=== PATIENT | female | born 1985 | race Caucasian/White ===

== ENCOUNTER 2018-08-01 13:32 | Observation (INO) ==
[~2018-08-01 13:32] MED LIST: Aminoglycoside Consult 1 EACH MC ONE
--- NOTE | 2018-08-01 14:20 | Emergency Department Note ---
Disposition Clinical Impression: Subgaleal fluid collection Abscess of skin or subcutaneous tissue Qualifiers: Site of cutaneous abscess: face Qualified Code(s): L02.01 - Cutaneous abscess of face Disposition: Admitted As Inpatient Condition: Good Referrals: Michelle Ram CNP [Primary Care Provider] - Forms: ED Satisfaction Letter Time of Disposition: 18:36 General Adult HPI - General Chief complaint: ED Skin/Abscess/Foreign Body Stated complaint: bump on forehead Time Seen by Provider: 08/01/18 14:03 Source: patient Mode of arrival: ambulatory Limitations: no limitations Nursing Notes Reviewed: Yes Vital Signs Reviewed: Yes - History of Present Illness HPI Narrative: Patient is a 32-year-old female, otherwise healthy with no major past medical history. She presents today due to concern for right forehead swelling. She states that she was recently treated for frontal sinusitis. She finished anabiotic Levaquin today. She states that around a week ago, she had some mild frontal sinus discomfort and some mild swelling around the medial aspect of the right eye. After beginning the antibiotic, this swelling went away. This morning, she woke up and she had small amount of swelling of the right forehead and she states that it has gotten bigger throughout the day. Denies any fevers, nausea, vomiting, diarrhea, chest pain, shortness breath, abdominal pain. She also reports tingling sensation of the right forehead, right posterior ear. Denies any ear pain. Denies any rhinorrhea or sore throat. Denies any overt pain of right forehead. Denies any pain with eye movement, any vision loss. She does admit to some mild blurred vision. Denies any injuries, falls. Pain Scale: 3 - Related Data Home Medications Medication Instructions Recorded Confirmed Sertraline [Zoloft] 100 mg PO BID 05/20/15 03/25/17 Cetirizine HCl [Zyrtec] 10 mg PO DAILY PRN 03/31/16 03/25/17 Cholecalciferol (D-3) [Vitamin D] 5,000 unit PO DAILY 03/25/17 03/25/17 Spironolactone [Aldactone] 50 mg PO DAILY 03/25/17 03/25/17 Previous Rx's Medication Instructions Recorded HYDROcodone/Acet 5/325 mg [[place] 1 tab PO Q4HR PRN #40 tablet 03/26/17 5-325 mg] Ibuprofen [Motrin] 600 mg PO Q6HR PRN #40 tablet 03/26/17 Allergies Allergy/AdvReac Type Severity Reaction Status Date / Time Oxycodone [From Percocet] AdvReac Mild Hives Verified 03/25/17 07:23 All systems ED: reviewed and negative except as stated. Constitutional: Denies: fever Eyes: Reports: other (right forehead swelling) Cardiovascular: Denies: chest pain Respiratory: Denies: cough, dyspnea Gastrointestinal: Denies: abdominal pain, nausea, vomiting Genitourinary: Denies: urgency, dysuria Musculoskeletal: Denies: back pain Neurological: Denies: headache, weakness, numbness Past Medical History - Past Medical History Attestation: Yes The following information was validated with the patient. Source: patient Medical history: Reports: thyroid disease, other Surgical history: Reports: other Psychiatric history: Reports: depression - Social History Smoking Status: Never smoker Smokeless Tobacco Status: No Alcohol use: Reports: none Drug use: Reports: none Physical Exam - General Limitations: no limitations General appearance: alert - Head Head exam: normocephalic, normal inspection - Expanded Head Exam 1 - right frontal swelling approx 6-7cm x 6-7cm, firm to touch with no fluc tuance; no overlying erythema; No overt tenderness - Eye Eye exam: Present: normal appearance, PERRL, EOMI, other (No pain with eyemovement). Absent: conjunctival injection, nystagmus, periorbital swelling, periorbital tenderness - ENT ENT exam: normal exam, normal oropharynx, mucous membranes moist, TM's normal bilaterally - Neck Neck exam: Present: normal inspection, full ROM, trachea midline - Chest Chest inspection: Present: normal inspection, symmetric chest wall rise - Respiratory Respiratory exam: Present: normal lung sounds bilaterally - Cardiovascular Cardiovascular exam: Present: regular rate, normal rhythm, normal heart sounds - Abdominal Exam Abdominal exam: Present: soft, Non-Tender. Absent: tenderness, distention, guarding, rebound, rigidity - Extremities Exam Extremities exam: Present: normal inspection, full ROM. Absent: tenderness, pedal edema - Neurological Exam Neurological exam: Present: alert, oriented X3, CN II-XII intact. Absent: motor sensory deficit - Expanded Neurological Exam Patient oriented to: Present: person, place, time Speech: Present: fluid speech Cranial nerves: EOM function (II, III, IV, ): Normal, facial sensation (V): Normal, facial palsy (VII): Normal, spinal accessory function (XI): Normal, ton victorino deviation (XII): Normal Motor strength - LUE: 5/5 Motor strength - RUE: 5/5 Motor strength - LLE: 5/5 Motor strength - RLE: 5/5 Sensory exam upper extremity: light touch: Normal Sensory exam lower extremity: light touch: Normal Coma Scale Eye Opening: Spontaneous Coma Scale Motor Response: Obeys Commands Coma Scale Verbal Response: Oriented Coma Scale Total: 15 - Psychiatric Psychiatric exam: Present: normal affect, normal mood - Skin Skin exam: Present: warm, dry, intact, normal color Course Course Narrative: Physical exam shows firm right frontal forehead lesion approximately 6 or 7 cm in diameter. No overlying fluctuance or erythema, no lesions. She has been reportedly treated for possible sinusitis. Currently concern for also periosteal involvement such as Morelos Puffy Tumor. I talked with neuroradiologist on the phone who recommended MRI of the face with without contrast for further assessment in setting of a CT scan. This was discussed with patient. She is agreeable with this plan. 18:29 MRI shows subgaleal fluid in the right frontal scalp concerning for phlegmon or developing abscess. I called the radiologist Dr. Lemuel Velazquez, and specifically discussed the evaluation for Morelos tumor. He stated that there was no underlying sinus disease, this was not a Morelos tumor. I talked with ENT, Dr. Harper, discussed presentation, clinical and imaging findings. Since area is firm in no overlying fluctuance, she requested IV vancomycin, Decadron 8 mg every 8 hours 3 doses and she will act as a consult and see the patient the morning. No surgical intervention at this time. This was discussed with patient. She was agreeable with staying. Dr. Ibrahim has accepted for admission. CBC is pending. This pending lab was relayed to the hospitalist. Face MRI 08/01/18 14:46 IMPRESSION: Enhancing subgaleal fluid in the right frontal scalp concerning for phlegmon or developing abscess. No underlying marrow signal abnormality, paranasal sinus disease, or intracranial extension. D/ / Lemuel Velazquez / Lemuel Velazquez Interpreting Provider: Lemuel Velazquez Vital Signs Temperature 98.2 F 08/01/18 13:35 Pulse Rate 74 08/01/18 13:35 Respiratory Rate 16 08/01/18 13:35 Blood Pressure 148/86 08/01/18 13:35 O2 Sat by Pulse Oximetry 98 08/01/18 13:35 Temperature 98.2 F 08/01/18 13:51 Pulse Rate 74 08/01/18 13:51 Respiratory Rate 16 08/01/18 13:51 Blood Pressure 148/86 08/01/18 13:51 O2 Sat by Pulse Oximetry 98 08/01/18 13:51 Oxygen Delivery Oxygen Delivery Room Air Medical Decision Making - MDM Narrative Medical decision making narrative: Physical exam shows firm right frontal forehead lesion approximately 6 or 7 cm in diameter. No overlying fluctuance or erythema, no lesions. She has been reportedly treated for possible sinusitis. Currently concern for also periosteal involvement such as Morelos Puffy Tumor. I talked with neuroradiologist on the phone who recommended MRI of the face with without contrast for further assessment in setting of a CT scan. This was discussed with patient. She is agreeable with this plan. 18:29 MRI shows subgaleal fluid in the right frontal scalp concerning for phlegmon or developing abscess. I called the radiologist Dr. Lemuel Velazquez, and specifically discussed the evaluation for Morelos tumor. He stated that there was no underlying sinus disease, this was not a Morelos tumor. I talked with ENT, Dr. Harper, discussed presentation, clinical and imaging findings. Since area is firm in no overlying fluctuance, she requested IV vancomycin, Decadron 8 mg every 8 hours 3 doses and she will act as a consult and see the patient the morning. Site was marked with skin marker for monitoring of progression. No surgical intervention at this time. This was discussed with patient. She was agreeable with staying. Dr. Ibrahim has accepted for admission. CBC is pending. This pending lab was relayed to the hospitalist. - Medical Records Medical records reviewed: Yes I reviewed the patient's medical records. - Lab Data Lab results reviewed: Yes I reviewed the patient's lab results. Result diagrams: 08/01/18 15:00 Lab Results 08/01/18 Range/Units 15:00 Sodium 138 (136-145) mEq/L Potassium 3.5 (3.5-5.1) mEq/L Chloride 102 (98-107) mEq/L Carbon Dioxide 30 H (23-29) mEq/L BUN 13 (6-20) mg/dL Creatinine 0.76 (0.60-1.20) mg/dL Est GFR ( Amer) > 60 (> 60) Est GFR (Non-Af Amer) > 60 (> 60) BUN/Creatinine Ratio 17 (6-26) Glucose 99 (70-105) mg/dL Calculated Osmolality 286 (280-300) Calcium 9.4 (8.6-10.3) mg/dL - Radiology Data Radiology results reviewed: Yes I reviewed the patient's radiology results. Face MRI 08/01/18 14:46 IMPRESSION: Enhancing subgaleal fluid in the right frontal scalp concerning for phlegmon or developing abscess. No underlying marrow signal abnormality, paranasal sinus disease, or intracranial extension. D/ / Lemuel Velazquez / Lemuel Velazquez Interpreting Provider: Lemuel Velazquez S.B.A.R. - S.B.A.R. Situation: Demographics, MOA Background: Presenting Complaint, Relevant PMH, Meds, & Allergies Assessment: Vital Signs, Course and respsone to treatment, Exam Concerns, Patient/Family Expectation, Pertinant Lab Results, Outstanding Labs (CBC) Recommendation: Barrier(s) to disposition, Recommendation based on pending studies, treatments, or consults S.B.A.R. Report Given to: Dr. Ibrahim
[2018-08-01] MEDS ORDERED: Gadolinium Contrast Agent (WT Based) IV PRN (14:46)
[2018-08-01 15:24] LABS: BUN/Creatinine Ratio 17 (6-26); Blood Urea Nitrogen 13 mg/dL (6-20); Calcium 9.4 mg/dL (8.6-10.3); Carbon Dioxide 30 mEq/L (23-29); Chloride 102 mEq/L (98-107); Glucose 99 mg/dL (70-105); Osmolality,Calculated 286 (280-300); Potassium 3.5 mEq/L (3.5-5.1); Sodium 138 mEq/L (136-145); eGFR For Non-African Americans > 60 (> 60)
--- NOTE | 2018-08-01 15:31 | Emergency Department Note ---
Disposition Clinical Impression: Subgaleal fluid collection Abscess of skin or subcutaneous tissue Qualifiers: Site of cutaneous abscess: face Qualified Code(s): L02.01 - Cutaneous abscess of face Disposition: Admitted As Inpatient Referrals: Michelle Ram CNP [Primary Care Provider] - Forms: ED Satisfaction Letter General Adult HPI - General Chief complaint: ED Skin/Abscess/Foreign Body Stated complaint: bump on forehead Time Seen by Provider: 08/01/18 14:03 Source: patient Mode of arrival: ambulatory Limitations: no limitations - History of Present Illness Pain Scale: 3 - Related Data Home Medications Medication Instructions Recorded Confirmed Sertraline [Zoloft] 100 mg PO BID 05/20/15 03/25/17 Cetirizine HCl [Zyrtec] 10 mg PO DAILY PRN 03/31/16 03/25/17 Cholecalciferol (D-3) [Vitamin D] 5,000 unit PO DAILY 03/25/17 03/25/17 Spironolactone [Aldactone] 50 mg PO DAILY 03/25/17 03/25/17 Previous Rx's Medication Instructions Recorded HYDROcodone/Acet 5/325 mg [[place] 1 tab PO Q4HR PRN #40 tablet 03/26/17 5-325 mg] Ibuprofen [Motrin] 600 mg PO Q6HR PRN #40 tablet 03/26/17 Allergies Allergy/AdvReac Type Severity Reaction Status Date / Time Oxycodone [From Percocet] AdvReac Mild Hives Verified 03/25/17 07:23 Constitutional: Denies: fever Eyes: Reports: other (right forehead swelling) Cardiovascular: Denies: chest pain Respiratory: Denies: cough, dyspnea Gastrointestinal: Denies: abdominal pain, nausea, vomiting Genitourinary: Denies: urgency, dysuria Musculoskeletal: Denies: back pain Neurological: Denies: headache, weakness, numbness Past Medical History - Past Medical History Medical history: Reports: thyroid disease, other Surgical history: Reports: other Psychiatric history: Reports: depression - Social History Smoking Status: Never smoker Smokeless Tobacco Status: No Alcohol use: Reports: none Drug use: Reports: none Physical Exam - General Limitations: no limitations General appearance: alert Course Vital Signs Temperature 98.2 F 08/01/18 13:35 Pulse Rate 74 08/01/18 13:35 Respiratory Rate 16 08/01/18 13:35 Blood Pressure 148/86 08/01/18 13:35 O2 Sat by Pulse Oximetry 98 08/01/18 13:35 Temperature 98.2 F 08/01/18 13:51 Pulse Rate 74 08/01/18 13:51 Respiratory Rate 16 08/01/18 13:51 Blood Pressure 148/86 08/01/18 13:51 O2 Sat by Pulse Oximetry 98 08/01/18 13:51 Oxygen Delivery Oxygen Delivery Room Air Medical Decision Making - MDM Narrative Medical decision making narrative: We did an MRI of this region and it does show a subgaleal phlegmon with developing abscess. We spoke with the radiologist. He does not feel this is a Pott's puffy tumor as there is no sinus disease involvement. We consulted with ENT. They recommended admission for IV antibiotics and will see tomorrow. Also recommended IV steroids. They do not recommend doing any local incision and drainage. - Medical Records Medical records reviewed: Yes I reviewed the patient's medical records. - Lab Data Lab results reviewed: Yes I reviewed the patient's lab results. Result diagrams: 08/01/18 15:00 Lab Results 08/01/18 Range/Units 15:00 Sodium 138 (136-145) mEq/L Potassium 3.5 (3.5-5.1) mEq/L Chloride 102 (98-107) mEq/L Carbon Dioxide 30 H (23-29) mEq/L BUN 13 (6-20) mg/dL Creatinine 0.76 (0.60-1.20) mg/dL Est GFR ( Amer) > 60 (> 60) Est GFR (Non-Af Amer) > 60 (> 60) BUN/Creatinine Ratio 17 (6-26) Glucose 99 (70-105) mg/dL Calculated Osmolality 286 (280-300) Calcium 9.4 (8.6-10.3) mg/dL - Radiology Data Radiology results reviewed: Yes I reviewed the patient's radiology results. Critical Care Time Critical Care Time: No Attestation Statement - Attestation Attestation: I examined this patient and my medical decision-making was reviewed with the R donitadent Physician. I agree with the documented findings, disposition and treatment plan as described except to the extent set forth below. 32 yo F here for right forehead swelling. started today randomly. located to right supraorbital area and goes uip to hairline. she states was dx'd with sinusitis recently and on antibiotics.
[2018-08-01 18:34] LABS: Basophils % 0.5 %; Eosinophils # 0.4 K/mcL (0.0-0.6); Hematocrit 45.4 % (35.3-44.9); Hemoglobin 15.1 g/dL (11.5-15.4); Immature Granulocytes % 0.2 % (0-4); Lymphocytes # 2.4 K/mcL (0.6-4.6); Lymphocytes % 29.6 %; Mean Corpuscular HGB Conc 33.3 g/dL (31.6-35.5); Mean Corpuscular Volume 87.1 fL (83.0-100.0); Mean Platelet Volume 10.9 fL (9.4-12.4); Monocytes # 0.6 K/mcL (0.0-1.3); Neutrophils # 4.7 K/mcL (1.6-8.9); Platelet Count 254 K/mcL (140-400); Red Blood Count 5.21 M/mcL (3.82-4.97); Red Cell Distribution Width 12.8 % (11.5-14.5); Segmented Neutrophils % 57.7 %
[2018-08-01] MEDS ORDERED: Ibuprofen 600 MG TABLET PO PRN (19:54)
[2018-08-01] MEDS ORDERED: TRAMADOL 100 MG PO PRN (19:56)
[2018-08-01] MEDS ORDERED: Ketorolac 30 MG/ML VIAL IVP PRN (19:56)
[2018-08-01] MEDS ORDERED: ACETAMINOPHEN 650 MG PO PRN (19:56)
[2018-08-01] MEDS ORDERED: Ringers Solution, Lactated 1,000 ML IVC SCH (20:30)
--- NOTE | 2018-08-01 21:13 | Internal Med History&Physical ---
Date of Encounter: 08/01/18 Time of Encounter: 21:10 Internal Medicine - H&P: HPI Chief complaint: face swelling Admitted From: Home Plans for Post Hospital Care: Home History of present illness: Michelle Hood is a 32 year old woman with no reported past medical history who developed a slight swelling in the area on the medial aspect of the right eyebrow a week ago. She was a PCP who prescribed her 7 days of levofloxacin for suspected frontal sinusitis although she had no upper respiratory symptoms. She completed the course yesterday. She says the swelling never went away and continued to progress until today where she woke up and noticed her whole right forehead was swollen and causing pressure and tingling. She denies having had any preceding trauma or pimples in the area. No fever or chills during this time period. No blurry vision or difficulty with ocular movements. In the ER a face MRI was done and showed enhancing subgaleal fluid in the right frontal scalp concerning for phlegmon or developing abscess. She was started on IV vancomycin and steroids as recommended by ENT and will be seen in the morning. At this time she has no complaints. She has not required any analgesics thus far. Past medical history: PCOS. Past surgical history remarkable for hysterectomy. Denies smoking and illicit drug use on social history. Family history obtained and found noncontributory. 10 point systems were reviewed and are negative except as listed above. Past Med Surg Social Fam HX - Past Medical History Medical history: thyroid disease, other Additional medical history: Hirsutism, PCOS Psychiatric history: depression - Past Surgical History Surgical History: other Additional surgical history: right ctr 2 weeks ago - Social History Smoking Status: Never smoker Smokeless Tobacco Status: No Alcohol use: none Drug use: none - Family History Father Adopted: No Family Member Ethnicity: Non- Living Status: Still Living Internal Medicine - H&P: Meds Sertraline [Zoloft] 50 mg PO DAILY 05/20/15 [History] Cetirizine HCl [Zyrtec] 10 mg PO DAILY PRN 03/31/16 [History] Cholecalciferol (D-3) [Vitamin D] 5,000 unit PO DAILY 03/25/17 [History] Spironolactone [Aldactone] 50 mg PO DAILY 03/25/17 [History] Fluticasone Propionate Nasal [Flonase] 50 mcg NS BID 08/01/18 [History] Ibuprofen [Motrin Ib] 200 - 400 mg PO Q6H PRN 08/01/18 [History] Multivit with Calcium,Iron,Min [One Daily Women's] 1 each PO DAILY 08/01/18 [History] Multivits Min/Iron/FA/Herb#186 [Hair, Skin & Nails Caplet] 1 each PO DAILY 08/01/18 [History] Allergy/AdvReac Type Severity Reaction Status Date / Time Oxycodone [From Percocet] AdvReac Mild Hives Verified 08/01/18 18:37 All Systems PM: A 10-system review of systems was performed and is negative for pertinent findings except as documented above in the HPI. - Constitutional Vitals: Temp Pulse Resp BP Pulse Ox 98.2 F 74 16 148/86 98 08/01/18 13:51 08/01/18 13:51 08/01/18 13:51 08/01/18 13:51 08/01/18 13:51 Exam: Vitals: Reviewed General: Well developed white woman sitting up in bed, NAD Skin: Warm and supple. HEENT: Moist mucous membranes. No conjunctivae pallor. 6cm area of swelling on the right forehead with no no significant erythema, somewhat tender to palpation, buoyant and fluctuant, no visible injuries. EOMI. PERRLA. Neck: No lymphadenopathy. No JVD. No carotid bruits. No palpable thyroid. Chest: Normal thoracic expansion. Normal breath sounds. Clear to auscultation. Heart: Normal S1 & S2; rhythmic. No rubs or murmurs. Abdomen: Non-distended, soft and non-tender to palpation. Extremities: No clubbing, cyanosis or edema. No calf tenderness. Normal distal pulses. Neurological: Awake, alert and oriented to person, place and time. No focal deficits. Psych: Affect appropriate. Internal Med - H&P Results - Labs CBC & Chem 7: 08/01/18 18:05 08/01/18 15:00 Labs: Short CBC 08/01/18 Range/Units 18:05 WBC 8.2 (4.3-11.1) K/mcL Hgb 15.1 (11.5-15.4) g/dL Hct 45.4 H (35.3-44.9) % Plt Count 254 (140-400) K/mcL Neutrophils # 4.7 (1.6-8.9) K/mcL BMP 08/01/18 15:00 Sodium 138 Potassium 3.5 Chloride 102 Carbon Dioxide 30 H BUN 13 Creatinine 0.76 Glucose 99 Calcium 9.4 - Impressions ITS Impressions Face MRI 08/01/18 14:46 IMPRESSION: Enhancing subgaleal fluid in the right frontal scalp concerning for phlegmon or developing abscess. No underlying marrow signal abnormality, paranasal sinus disease, or intracranial extension. D/ / Lemuel Velazquez / Lemuel Velazquez Interpreting Provider: Lemuel Velazquez - Assessment and plan (1) Subgaleal fluid collection Current Visit: Yes Status: Acute Assessment and plan: Unclear etiology. No systemic signs of illness present. No preceding trauma or puncture injuries. Will continue IV vancomycin and steroids as recommended by ENT. May benefit from incision and drainage with sampling of the fluid. Pain control as needed. (2) PCOS (polycystic ovarian syndrome) Current Visit: Yes Status: Chronic Assessment and plan: On spironolactone. (3) Endometriosis determined by laparoscopy Current Visit: No Status: Resolved Assessment and plan: s/p hysterectomy. (4) DVT prophylaxis Current Visit: Yes Status: Acute Assessment and plan: SubQ heparin. - Time Spent With Patient Total time spent is greater than 50% in coordination of care (as documented) at patient's floor/unit and/or counseling patient: Greater than 35 minutes
[2018-08-02] MEDS ORDERED: *HR* Heparin 5,000 UNIT/ML VIAL SQ SCH
[2018-08-02 05:06] LABS: Basophils % 0.2 %; Eosinophils % 0.2 %; Hematocrit 48.2 % (35.3-44.9); Hemoglobin 15.9 g/dL (11.5-15.4); Immature Granulocytes % 0.3 % (0-4); Lymphocytes % 10.2 %; Mean Corpuscular Hemoglobin 28.3 pg (28.0-33.3); Mean Corpuscular Volume 85.9 fL (83.0-100.0); Mean Platelet Volume 10.7 fL (9.4-12.4); Monocytes # 0.1 K/mcL (0.0-1.3); Neutrophils # 8.8 K/mcL (1.6-8.9); Platelet Count 271 K/mcL (140-400); Red Blood Count 5.61 M/mcL (3.82-4.97); Red Cell Distribution Width 12.6 % (11.5-14.5); Segmented Neutrophils % 88.1 %
[2018-08-02 05:14] LABS: Prothrombin Time 11.6 Seconds (9.4-12.1)
[2018-08-02 05:17] LABS: Activated Partial Thrombo Time 31.7 Seconds (26.0-36.0)
[2018-08-02 05:22] LABS: BUN/Creatinine Ratio 21 (6-26); Blood Urea Nitrogen 14 mg/dL (6-20); Calcium 9.9 mg/dL (8.6-10.3); Carbon Dioxide 27 mEq/L (23-29); Chloride 103 mEq/L (98-107); Glucose 149 mg/dL (70-105); Osmolality,Calculated 287 (280-300); Potassium 4.1 mEq/L (3.5-5.1); Sodium 137 mEq/L (136-145); eGFR For Non-African Americans > 60 (> 60)
[2018-08-02] MEDS: Ampicillin/Sulbactam 1,500 MG in 0.9 % Sodium Chloride Mini Bag 100 ML IVPB SCH ×2 (10:14→11:21)
--- NOTE | 2018-08-02 11:18 | Discharge Summary ---
- NOTES TO OUTPATIENT PROVIDER Notes to Outpatient Provider: f/u with PCP in one week. f/u with ENT in one week Date of Encounter: 08/02/18 Time of Encounter: 10:00 - Discharge Diagnosis (1) Facial cellulitis Priority: Primary Status: Acute (2) Subgaleal fluid collection Priority: Primary Status: Acute (3) PCOS (polycystic ovarian syndrome) Priority: Secondary Status: Chronic (4) DVT prophylaxis Priority: Secondary Status: Acute Hospital course: Ms. Hood is a 32 year old female with no reported past medical history other than PCOS, who developed a slight swelling in the area on the medial aspect of the right eyebrow and Frontal area a week ago. Her PCP prescribed her 7 days of levofloxacin for suspected frontal sinusitis although she had no upper resp iratory symptoms. She completed the course yesterday. Pt did mention her swelling got better initially however y/d she noticed whole right forehead was swollen and causing pressure and tingling. She denies having had any preceding trauma or pimples in the area. In the ER a face MRI was done and showed enhancing subgaleal fluid in the right frontal scalp concerning for phlegmon or developing abscess. She was started on IV vancomycin and steroids as recommended by ENT and will be seen in the morning. Talked to radiologist, MRI findings are consistent with facial cellulites. No loculated collection to drain. Also her facial swelling got much better today. She denied any vision changes. ENT evaluated the pt this morning and recommend PO abx for 7-10 days and f/u with them as an out pt. - Time Spent with Patient Total time spent providing and/or coordinating discharge services: - Discharge Medications Prescriptions: Amoxicillin/Clavulanate [Augmentin] 875 mg PO BIDWM #20 tablet Lactobacillus Acidophilus [Acidophilus] 1 each PO BID #20 capsule Home Medications: Sertraline [Zoloft] 50 mg PO DAILY 05/20/15 [History] Cetirizine HCl [Zyrtec] 10 mg PO DAILY PRN 03/31/16 [History] Cholecalciferol (D-3) [Vitamin D] 5,000 unit PO DAILY 03/25/17 [History] Spironolactone [Aldactone] 50 mg PO DAILY 03/25/17 [History] Fluticasone Propionate Nasal [Flonase] 50 mcg NS BID 08/01/18 [History] Ibuprofen [Motrin Ib] 200 - 400 mg PO Q6H PRN 08/01/18 [History] Multivit with Calcium,Iron,Min [One Daily Women's] 1 each PO DAILY 08/01/18 [History] Multivits Min/Iron/FA/Herb#186 [Hair, Skin and Nails Caplet] 1 each PO DAILY 08/01/18 [History] Amoxicillin/Clavulanate [Augmentin] 875 mg PO BIDWM #20 tablet 08/02/18 [Rx] Lactobacillus Acidophilus [Acidophilus] 1 each PO BID #20 capsule 08/02/18 [Rx] Allergies/Adverse Reactions: Allergy/AdvReac Type Severity Reaction Status Date / Time Oxycodone [From Percocet] AdvReac Mild Hives Verified 08/01/18 18:37 Date of admission: 08/01/18 21:19 Primary care physician: Michelle Ram CNP Consults: 08/01/18 18:32 Consult to ENT [CONS] Stat Consulting Provider: ENT Yolanda Reason for Consult: subgaleal abscess vs phlegmon, right forehead Time Notified: 18:32 Call Completed: Yes - Constitutional Vitals: Temp Pulse Resp BP Pulse Ox 97.8 F 69 16 117/78 97 08/02/18 07:32 08/02/18 07:32 08/02/18 07:32 08/02/18 07:32 08/02/18 07:32 General appearance: Present: A&O X 3 Exam: aa - Head Head exam: Present: atraumatic Additional comments: mild erythema and swelling over Rt fore head just above Rt upper eye lid and above nasal bridge - Neck Neck exam general surgery: Present: supple - Respiratory Respiratory exam: Present: CTAB. Absent: respiratory distress, rhonchi, wheezes - Cardiovascular Cardiovascular exam: Present: RRR, +S1, +S2 - GI/Abdominal GI/Abdominal exam: Present: normal bowel sounds, soft. Absent: rebound, rigid, tenderness - Extremities Exam Extremities exam: Absent: calf tenderness, pedal edema, tenderness - Back Exam Back exam: Absent: CVA tenderness (L), CVA tenderness (R) - Neurological Exam Neurological exam: Present: alert, oriented X3 - Psychiatric Psychiatric exam: Present: normal affect, normal mood - Patient Status Disposition: Home, Self-Care Condition: Good Overall status at discharge: patient is back to baseline - Discharge Instructions Follow Up With: Michelle Ram [employer] [Primary Care Provider] - Additional Instructions: Need an appointment with ENT in one week - Diet and Activity Activity: increase activity as tolerated Diet: advance to your usual diet
[2018-08-02 11:19] VITALS: BP 126/78
--- NOTE | 2018-08-02 11:31 | ENT - Consult Note ---
Date of Encounter: 08/02/18 Time of Encounter: 11:22 Assessment and Plan (1) Facial cellulitis Current Visit: Yes Status: Acute Patient seen and examined today at bedside. Patient with small area of superficial swelling with no fluctuance palpated, noted to right medial forehead. No evidence of facial abscess. No further surgical intervention is recommended at this time. Discussed plan of care with hospitalist. Recommend discharge with oral doxcycline for MRSA coverage. Patient is to follow up in one week for evaluation in ENT office, or sooner if symptoms worsen or persist. All questions answered. History of Present Illness Consult date: 08/02/18 Reason for ENT Consult: other (facial cellulitis) Requesting physician: Tammy Davis History of present illness: Patient is a 32 year old female, with no significant past medical history, admitted for observation on 08/01/18 for right facial cellulitis with concern for developing abscess. Patient reports approximately 2 weeks ago a small "bump" developed on her right forehead, directly above the right eyebrow, which continued to progress to an area of moderate swelling. Patient reports she was seen in her PCP's office approximately one week ago for this complaint and was prescribed oral Levaquin for possible right frontal sinusitis, patient reported no symptoms of URI at the time. Patient reports she completed a 7 day course of oral Levaquin and the swelling of the area had subsided with near resolution. She reports rapid swelling began again yesterday. She denies any recent trauma to the area, no recent insect bites, lacerations, or exposure to allergens. Patient does admit to increased itching of the affected area. Patient denies any changes in vision or ocular movement. Patient had MRI of the face completed upon arrival to ED yesterday which demonstrated Enhancing subgaleal fluid in the right frontal scalp concerning for phlegmon or developing abscess. Subsequently, ENT was consulted for evaluation with verbal consultation previously completed with Dr. Harper ENT physician. Past Med Surg Social Fam HX - Past Medical History Medical history: other Additional medical history: Hirsutism, PCOS Psychiatric history: depression - Past Surgical History Surgical History: hysterectomy, other Additional surgical history: right ctr 2 weeks ago. WISDOME TEETH - Social History Smoking Status: Never smoker Smokeless Tobacco Status: No Alcohol use: none Drug use: none - Family History Father Adopted: No Family Member Ethnicity: Non- Living Status: Still Living Hx Family Endocrine Disorder: Yes (DM) Medications and Allergies Sertraline [Zoloft] 50 mg PO DAILY 05/20/15 [History] Cetirizine HCl [Zyrtec] 10 mg PO DAILY PRN 03/31/16 [History] Cholecalciferol (D-3) [Vitamin D] 5,000 unit PO DAILY 03/25/17 [History] Spironolactone [Aldactone] 50 mg PO DAILY 03/25/17 [History] Fluticasone Propionate Nasal [Flonase] 50 mcg NS BID 08/01/18 [History] Ibuprofen [Motrin Ib] 200 - 400 mg PO Q6H PRN 08/01/18 [History] Multivit with Calcium,Iron,Min [One Daily Women's] 1 each PO DAILY 08/01/18 [History] Multivits Min/Iron/FA/Herb#186 [Hair, Skin and Nails Caplet] 1 each PO DAILY 08/01/18 [History] Doxycycline Hyclate 100 mg PO BID #20 tablet 08/02/18 [Rx] Lactobacillus Acidophilus [Acidophilus] 1 each PO BID #20 capsule 08/02/18 [Rx] Allergy/AdvReac Type Severity Reaction Status Date / Time Oxycodone [From Percocet] AdvReac Mild Hives Verified 08/01/18 18:37 ENT - ROS - EENT Nose, mouth and throat: other (right forehead facial swelling) ENT Exam Initial Vital Signs Temp Pulse Resp BP Pulse Ox 98.2 F 74 16 148/86 98 08/01/18 13:35 08/01/18 13:35 08/01/18 13:35 08/01/18 13:35 08/01/18 13:35 - General physical appearance well developed, well nourished, no distress, no pain - Eyes PERRL, normal ocular movement - ENT CN 2-12 grossly intact, Other (EARS: bilateral EAC's clear. TM's with tympanosclerosis noted bilaterally, no middle ear effusion or infection noted. NOSE: septum grossly midline, bilateral inferior nasal turbinate hypertrophy. Nasal mucosa moist without lesion. ORAL: teeth in good repair, tongue midline, uvula midline, tonsils atrophied. Oropharynx normal. ) - Neck no masses, trachea midline, no lymphadectomy - Respiratory normal expansion, normal respiratory effort - Integumentary other (Small area of superficial soft tissue swelling with thickness <1.0cm in size noted to medial right forehead directly above right eyebrow. No fluctuance palpated. 1.5 x 2 cm area of faint blanching redness noted. This is decrease compared to intial marking. ) - Musculoskeletal normal gait, normal posture - Psychiatric oriented to time, oriented to person, oriented to place, speech is normal Exam Initial Vital Signs Temp Pulse Resp BP Pulse Ox 98.2 F 74 16 148/86 98 08/01/18 13:35 08/01/18 13:35 08/01/18 13:35 08/01/18 13:35 08/01/18 13:35 Results - Labs 08/02/18 04:41 08/02/18 04:41 Abnormal lab results RBC 5.61 M/mcL (3.82-4.97) H 08/02/18 04:41 Hgb 15.9 g/dL (11.5-15.4) H 08/02/18 04:41 Hct 48.2 % (35.3-44.9) H 08/02/18 04:41 Glucose 149 mg/dL (70-105) H 08/02/18 04:41 Diabetes panel 08/01/18 08/02/18 Range/Units 15:00 04:41 Sodium 138 137 (136-145) mEq/L Potassium 3.5 4.1 (3.5-5.1) mEq/L Chloride 102 103 (98-107) mEq/L Carbon Dioxide 30 H 27 (23-29) mEq/L BUN 13 14 (6-20) mg/dL Creatinine 0.76 0.68 (0.60-1.20) mg/dL Glucose 99 149 H (70-105) mg/dL Calcium 9.4 9.9 (8.6-10.3) mg/dL Calcium panel 08/01/18 08/02/18 Range/Units 15:00 04:41 Calcium 9.4 9.9 (8.6-10.3) mg/dL Pituitary panel 08/01/18 08/02/18 Range/Units 15:00 04:41 Sodium 138 137 (136-145) mEq/L Potassium 3.5 4.1 (3.5-5.1) mEq/L Chloride 102 103 (98-107) mEq/L Carbon Dioxide 30 H 27 (23-29) mEq/L BUN 13 14 (6-20) mg/dL Creatinine 0.76 0.68 (0.60-1.20) mg/dL Glucose 99 149 H (70-105) mg/dL Calcium 9.4 9.9 (8.6-10.3) mg/dL Adrenal panel 08/01/18 08/02/18 Range/Units 15:00 04:41 Sodium 138 137 (136-145) mEq/L Potassium 3.5 4.1 (3.5-5.1) mEq/L Chloride 102 103 (98-107) mEq/L Carbon Dioxide 30 H 27 (23-29) mEq/L BUN 13 14 (6-20) mg/dL Creatinine 0.76 0.68 (0.60-1.20) mg/dL Glucose 99 149 H (70-105) mg/dL Calcium 9.4 9.9 (8.6-10.3) mg/dL All other labs normal. Consult Discharge Plan - Plan Instructions: Amoxicillin (By mouth), Cellulitis (DC) Additional Instructions: Need an appointment with ENT in one week Referrals: Michelle Ram CNP [Primary Care Provider] - 08/10/18 1:00 pm Iris Lechuga MD [Partnered Physician] - 08/05/18 9:30 am Vera Harper DO [Non-Partnered Physician] - 08/11/18 1:30 pm Prescriptions: Doxycycline Hyclate 100 mg PO BID #20 tablet Lactobacillus Acidophilus [Acidophilus] 1 each PO BID #20 capsule
== END 2018-08-02 11:59 | disposition home or self-care (01) ==
LOC: 3BNU 13:32 → EMEROOARM 13:32 → SUATTDRO 21:19 → 3BNU 22:03
PROVIDERS: ADMIT Hospitalist; ATTEND Family Medicine